=== PATIENT | male | born 1985 ===

== ENCOUNTER 2020-09-02 23:00 | Emergency (ER) | payer SELFPAY | END 2020-09-02 23:21 | disposition home or self-care (01) | LOC: MW.ED 23:00 | DX: I10 Essential (primary) hypertension (principal) | CPT/HCPCS: 99283 ==

== ENCOUNTER 2024-02-14 00:39 | Emergency (ER) | payer MEDICAID ==
[2024-02-14] MEDS ORDERED: Sodium Chloride 0.9% 20 ML SDV IV PRN (00:49)
[2024-02-14 00:57] LABS: BASOPHILS ABSOLUTE AUTO 0.05 K/uL (0.00-0.20); BASOPHILS PERCENT AUTO 0.4 % (0.0-1.0); EOSINOPHILS ABSOLUTE AUTO 0.16 K/uL (0.00-0.45); EOSINOPHILS PERCENT AUTO 1.4 % (0.0-6.0); HEMOGLOBIN 15.7 g/dL (14.0-18.0); IMMATURE GRAN ABSOLUTE AUTO 0.05 K/uL (0.00-0.05); IMMATURE GRAN PERCENT AUTO 0.4 % (0.0-0.4); LYMPHOCYTES ABSOLUTE AUTO 3.64 K/uL (1.00-4.80); LYMPHOCYTES PERCENT AUTO 31.8 % (24.0-44.0); MEAN CORPUSCULAR HEMOGLOBIN 29.7 pg (28.0-32.0); MEAN CORPUSCULAR HGB CONC 34.9 g/dL (32.0-36.0); MEAN CORPUSCULAR VOLUME 85.2 fL (83.0-99.0); MEAN PLATELET VOLUME 8.8 fL (9.4-12.4); MONOCYTES ABSOLUTE AUTO 0.94 K/uL (0.00-0.80); MONOCYTES PERCENT AUTO 8.2 % (0.0-8.0); NEUTROPHILS ABSOLUTE AUTO 6.59 K/uL (1.80-7.70); NEUTROPHILS PERCENT AUTO 57.8 % (41.0-71.0); PLATELET COUNT,PLT 309 K/uL (150-400); RED BLOOD CELL COUNT 5.28 M/uL (4.52-5.90); WHITE BLOOD CELL COUNT,WBC 11.43 K/uL (3.9-11.3)
[2024-02-14] MEDS: Sodium Chloride 0.9% 1,000 ML IV ONE (01:00)
[2024-02-14 01:18] LABS: ALANINE AMINOTRANSFERASE,ALT 158 IU/L (14-63); ALBUMIN 3.4 g/dL (3.4-5.0); ALKALINE PHOSPHATASE 79 U/L (46-116); ASPARTATE AMNIOTRANSFERASE,AST 64 IU/L (15-37); BILIRUBIN TOTAL 0.6 mg/dL (0.2-1.0); BLOOD UREA NITROGEN,BUN 17 mg/dL (7.0-18.0); CALCIUM 8.6 mg/dL (8.5-10.1); CARBON DIOXIDE,CO2 23.5 mmol/L (21.0-32.0); CHLORIDE,CL 105 mmol/L (98-107); CREATININE 1.1 mg/dL (0.8-1.3); EST CRCL DRUG DOSING (CG) 97.93 mL/min; GLUCOSE RANDOM 102 mg/dL (74-106); LIPASE 33 U/L (16-77); PROTEIN TOTAL,TP 6.7 g/dL (6.4-8.2); SODIUM,NA 139 mmol/L (136-148)
[2024-02-14] MEDS: Acetaminophen 500 MG Tab PO ONE (01:37)
[2024-02-14] MEDS: Sodium Chloride 0.9% 10 ML Syringe FLUSH PRN (01:38)
[2024-02-14] MEDS: Sodium Chloride 0.9% 2.5 ML Syringe FLUSH PRN (01:38)
[2024-02-14] MEDS: Ketorolac 30 MG/ML SDV IVPUSH ONE (01:38)
[2024-02-14 01:46] LABS: ESTIMATED GFR 89 mL/min (>60)
[2024-02-14 02:03] LABS: ETHANOL BLOOD MEDICAL <3 mg/dL; MAGNESIUM 2.2 mg/dL (1.8-2.4)
[2024-02-14] MEDS: Diphtheria,Pertussis(Acell),Tetanus Vaccine 0.5 ML Syringe IM ONE (02:11)
== END 2024-02-14 02:53 | disposition home or self-care (01) ==
LOC: MW.ED 00:39
DX: S06.0X1A Concussion with loss of consciousness of 30 minutes or less, initial encounter (principal); S09.93XA Unspecified injury of face, initial encounter; S02.2XXA Fracture of nasal bones, initial encounter for closed fracture; M54.2 Cervicalgia; F15.90 Other stimulant use, unspecified, uncomplicated; Z23 Encounter for immunization; Z79.899 Other long term (current) drug therapy; Y04.8XXA Assault by other bodily force, initial encounter
CPT/HCPCS: 36415; 70450; 70486; 72125; 80053; 80307; 83690; 83735; 85025; 90471; 90715; 96361; 96374; 99285; A9270; J1885; J3490; J7030; 99284